=== PATIENT | male | born 1960 | race Caucasian/White ===

== ENCOUNTER 2023-02-13 13:17 | Emergency (ER) | payer BC, SELFPAY ==
[2023-02-13 13:30] VITALS: BP 149/73; PULSE 82; RESP 20; TEMP 36.8; O2SAT 95; BMI 43.4
--- NOTE | 2023-02-13 13:39 | ED.GENADULT ---
HPI - General Adult General Chief complaint: Urogenital Problems, Male Stated complaint: Swollen L testicle Time Seen by Provider: 02/13/23 13:29 History of Present Illness HPI narrative: comes to ed with concerns of left testicle shooting pain. this is worsening since . has pain and swelling. has hx of sciatic type nerve pain and has had surgery -L5- cleaned up scar tissue in 2009. denies and genital trauma. 62-year-old man presenting to the emergency department with complaint of 4 days of increasing left testicle pain. No trauma. Has noted some swelling. Does take naproxen for intermittent sciatic nerve pain, he gestures to the right hip, and has tried that for this. Is not reporting any dysuria or difficulty with urination. Is not sexually active; he laughs. No fever. No abdominal surgeries hernia. Related Data Previous Rx's Medication Instructions Recorded naproxen 500 mg tablet 500 mg PO BID PRN pain #30 tabs 02/13/23 sulfamethoxazole 800 1 tab PO BID 12 days #24 tabs 02/13/23 mg-trimethoprim 160 mg tablet (Bactrim DS) Allergies Allergy/AdvReac Type Severity Reaction Status Date / Time No Known Drug Allergies Allergy Verified 02/13/23 13:29 Review of Systems Status of ROS: Reports: 6 or more systems reviewed and unremarkable except as noted in History and below [facility] Social History Smoking Status: Never smoker Do you use any of these nicotine containing products: None Second hand tobacco smoke exposure: Yes How often do you have a drink containing alcohol: never How often do you have six or more drinks on one occasion: Never AUDIT-C Alcohol total score: 0 Non-prescribed substance use: denies use service: No Exam Narrative: Exam Narrative: Pleasant. NAD. Large man. Breathing easily. Skin is warm and dry. Is well-perfused peripherally. Abdomen is soft overweight. No defect or mass appreciated in suprapubic tissue. Penis is not easily visualized in tissue. Left testicle appears nearly double in size. There is mild erythema and calor. Quite tender to palpation. I do not appreciate any fluctuance. Right testicle appears normal. Const: Vital Signs, click to edit/add: Vital Signs - 24 hr 02/13/23 13:30 Temperature 98.3 F Pulse Rate [Pulse Oximeter] 82 Respiratory Rate 20 Blood Pressure [Le ft Upper Arm] 149/73 H Pulse Oximetry 95 Oxygen Delivery Me thod Room Air Documenting provider has reviewed patient's vital signs: yes Course Vital Signs Vital signs: Initial Vital Signs Temperature 98.3 F 02/13/23 13:30 Temperature Source Temporal Artery Scan 02/13/23 13:30 Pulse Rate 82 02/13/23 13:30 Pulse Rhythm Regular 02/13/23 13:30 Respiratory Rate 20 02/13/23 13:30 Blood Pressure 149/73 H 02/13/23 13:30 Blood Pressure Mean 98 02/13/23 13:30 Blood Pressure Position Supine 02/13/23 13:30 Pulse Oximetry 95 02/13/23 13:30 Oxygen Delivery Method Room Air 02/13/23 13:30 Vital Signs Temperature 98.3 F 02/13/23 13:30 Pulse Rate 82 02/13/23 13:30 Respiratory Rate 20 02/13/23 13:30 Blood Pressure 149/73 H 02/13/23 13:30 Pulse Oximetry 95 02/13/23 13:30 Oxygen Delivery Method Room Air 02/13/23 13:30 Temperature 98.3 F 02/13/23 13:30 Pulse Rate 82 02/13/23 13:30 Respiratory Rate 20 02/13/23 13:30 Blood Pressure 149/73 H 02/13/23 13:30 Pulse Oximetry 95 02/13/23 13:30 Oxygen Delivery Method Room Air 02/13/23 13:30 Medical Decision Making MDM Narrative Medical decision making narrative: Doubtful torsion here. I would suspect orchitis at a minimum. Possibly some hydrocele involvement as well. Reportedly no risk of STI. I requested an ultrasound verify blood flow confirm diagnosis. Did not collect urinalysis is I do not think this will change treatment plan. Ultrasound discussed with personal service workers confirming orchitis, epididymitis and small hydrocele. Radiology over-read as below Right testicle: Right epididymal cysts measuring 8 millimeters and 6 millimeters. Right testicle measures 2.9 x 2.2 x 4.7 centimeters and is hyperemic without discrete lesion. Left testicle: Prominent hyperemia of the epididymis. Left testicle measures 3.6 x 3.4 x 3.9 centimeters and is also hyperemic without focal lesion. Small left hydrocele. Impression: 1. Left epididymal and testicular hyperemia consistent with epididymo-orchitis. Also increased vascularity of the right testicle suggesting right orchitis. 2. Small left hydrocele. Discussed findings with Mr. Owen. He had been concerned of potential cancer. Confirming current recommended treatment in [place] antibiotic guide. See patient discharge plan. Discharge Plan Discharge Clinical Impression: Orchitis and epididymitis Condition: Stable Additional Instructions: Wear snug briefs such that can elevate scrotum/testicle. Can take up to 800 mg of ibuprofen or up to 1000 mg of acetaminophen per day. Alternative to the ibuprofen might be up to 500 mg naproxen 2 times daily. Ibuprofen or naproxen can be combined with acetaminophen but do not take ibuprofen and naproxen at the same time dosing. Radiology has had a chance to review your imaging and they agree with our personal service workers. Prescriptions: New naproxen 500 mg tablet 500 mg PO BID PRN (Reason: pain) Qty: 30 0RF sulfamethoxazole-trimethoprim [Bactrim DS] 800-160 mg tablet 1 tab PO BID 12 Days Qty: 24 0RF Follow Up/Referrals: Provider,Not a Local [Primary Care Provider] - Stand Alone Forms: Apprion Info Instructions
--- NOTE | 2023-02-13 14:08 | CRLHL7_ITS ---
For Patients: As a result of the Century Cures Act, medical imaging exams and procedure reports are released immediately into your electronic medical record. You may view this report before your referring provider. If you have questions, please contact your health care provider. Indication: Left testicular pain and swelling Technique: Ultrasound of the scrotum and contents. Sonographic doherty-scale images were obtained with spectral and color Doppler waveform and spectral waveform analysis of the testicles. Comparison: None Findings: Right testicle: Right epididymal cysts measuring 8 millimeters and 6 millimeters. Right testicle measures 2.9 x 2.2 x 4.7 centimeters and is hyperemic without discrete lesion. Left testicle: Prominent hyperemia of the epididymis. Left testicle measures 3.6 x 3.4 x 3.9 centimeters and is also hyperemic without focal lesion. Small left hydrocele. Impression: 1. Left epididymal and testicular hyperemia consistent with epididymo-orchitis. Also increased vascularity of the right testicle suggesting right orchitis. 2. Small left hydrocele. Dictated by Prem Thurston MD @ 02/13/2023 3:01:20 PM (Electronically Signed)
== END 2023-02-13 15:15 | disposition home or self-care (01) ==
PROVIDERS: Emergency Provider Family Medicine
DX: N45.3 Epididymo-orchitis (principal)
CPT/HCPCS: 76870; 93976; 99284